=== PATIENT | male | born 1945 ===

== ENCOUNTER 2022-02-27 04:50 | Day surgery (SDC) | payer OTHER ==
[~2022-02-27 04:50] MED LIST: SIMVASTA PO; TAMS0.4C PO; TIROSINT25 MCG PO
== END 2022-02-27 13:10 | disposition home or self-care (01) ==
LOC: CIR.AMB 04:50
PROVIDERS: ATTEND Specialist
DX: K40.90 Unilateral inguinal hernia, without obstruction or gangrene, not specified as recurrent (principal); Z20.822 Contact with and (suspected) exposure to COVID-19; E03.9 Hypothyroidism, unspecified; N40.0 Benign prostatic hyperplasia without lower urinary tract symptoms; D17.6 Benign lipomatous neoplasm of spermatic cord